=== PATIENT | female | born 1970 | race Caucasian/White ===

== ENCOUNTER 2018-01-16 14:53 | Emergency (ER) | payer OTHER ==
[2018-01-16 15:54] LABS: ABS Basophils 0 10^3/ul (0-0.2); ABS Eosinophils 0.1 10^3/ul (0-0.6); ABS Lymphocytes 2.1 10^3/ul (1.0-4.8); ABS Monocytes 0.4 10^3/ul (0-0.8); ABS Neutrophils 3.9 10^3/ul (1.5-7.7); ABS Nucleated RBC 0 10^3/ul; Hematocrit 40 % (35-47); Hemoglobin 13.9 g/dl (12.0-16.0); Lymphocyte % 32.5 % (25-47); Mean Corpuscular HGB Conc 35 g/dl (31-36); Mean Corpuscular Hemoglobin 31 pg (27-31); Mean Corpuscular Volume 89 fL (80-97); Mean Platelet Volume 7.6 um3 (7.4-10.4); Nucleated Red Blood Cells % 0.1; Platelet Count 305 10^3/ul (150-450); Red Blood Count 4.48 10^6/ul (4.00-5.40); Red Cell Distribution Width 13 % (10.5-15); White Blood Count 6.4 10^3/ul (3.5-10.8)
[2018-01-16] MEDS ORDERED: Labetalol IV* 5 MG/ML 20 ML VIAL IV PUSH ONE (15:56)
[2018-01-16 16:02] LABS: INR 0.91 (0.77-1.02)
[2018-01-16 16:15] LABS: EGFR Non-African American 93.6 (>60)
[2018-01-16 16:33] LABS: Urine Appearance Clear; Urine Blood Negative (Negative); Urine Color Colorless; Urine Ketones Negative (Negative); Urine Protein Negative (Negative); Urine Specific Gravity 1.002 (1.010-1.030); Urine Urobilinogen Negative (Negative)
--- NOTE | 2018-01-16 17:01 | RAD ---
INDICATION: Hypertension. Left occipital headache COMPARISON: None TECHNIQUE: Noncontrast axial source images were acquired from the skull base to the vertex. FINDINGS: Ventricles/sulci: The ventricles and cisterns are normal in size and configuration for age. Brain parenchyma: There is no focal parenchymal finding, evidence of intracranial mass, or intracranial mass effect. Intracranial hemorrhage:None. Extra-axial spaces: There are no abnormal extra axial fluid collections or evidence of extra-axial mass. Calvarium: There is no calvarial fracture or other calvarial abnormality. Scalp: There is no evidence of scalp or extracalvarial soft tissue abnormality. Paranasal sinuses/mastoid: The paranasal sinuses and mastoid air cells are clear. Other: None. IMPRESSION: NEGATIVE NONCONTRAST CT EXAMINATION
--- NOTE | 2018-01-16 17:17 | RAD ---
Indication: Hypertension. Tachycardia. Comparison: February 28, 2013 CT. Technique: Sitting AP chest 1704 hours Report: Clear lungs and pleural spaces. Negative for pneumothorax. The heart, pulmonary vasculature, and mediastinal contours are unremarkable. Unremarkable osseous structures and soft tissue contours. IMPRESSION: #. No evidence for acute intrathoracic disease.
[2018-01-16] MEDS ORDERED: Lisinopril TAB* 10 MG PO ONE (17:37)
--- NOTE | 2018-01-16 18:02 | ED ---
HPI Cardiac - HPI Summary HPI Summary: This is scribe Israel Rayo documenting for attending Tana Xavier MD. A 47 y/o female presents to ED c/o HTN and headache intermittently for the past few days, worse this am . In the ED room, the patient has a pulse of 98 BPM, O2 saturation of 98% and blood pressure of 145/105. The patient was dropping her car off for inspection. According to the patient, when she initially took her blood pressure, it was 150/77 with a pulse of 117 BPM. She stated that she " sort of freaked out, but decided to be calm". She doubled check her blood pressure with a friend's device and it revealed a blood pressure of 149/100 with a pulse of 112 BPM. She then checked several more times from 12:55 to 14: 12. The second time was 144/102 with a pulse of 117 BPM and the third time was 154/108 with a pulse of 116 BPM. She noted that she had some food and a fruit smoothy to try to calm herself. Additionally she noted that she has neck pain for the past couple days as she has pressure in the back of her head and eye socket, especially on the left. She also has been having elevated BP readings for the past 3 days. She was assigned a coffee blender so young because patient has a strong family history of cardiac issues and onset of HTN at a young age. Dr. Benson is her coffee blender. LKMP was January 05 2018. FHx of brain aneurysm (uncle), AR (grandfather), bicuspid aortic value and stents(brother). SHx of no drinking, no smoking. Per pt an ECHO and EKG have been done previously by Dr. Benson. Stress test completed by coffee blender was negative , however, she does have "a murmur and leaky value". Allergic to codeine and its whole family. PMHx of tual ligation. History from Dr. Benson's office: ECHO 11/04/2016. EF 55-60%. Stress ECHO on 11/15/2016 - normal. Normal aortic valve. No significant changes with EKG on 10/14/2016. Consistent with today. I, Dr. Tana Xavier, personally performed the services described in this documentation as scribed in my presence and it is both accurate and complete. - History of Current Complaint Chief Complaint: EDHeadache Stated Complaint: HEADACHE/HIGH BP Time Seen by Provider: 01/16/18 15:28 Hx Obtained From: Patient, Medical Records - from Dr. Benson's office Onset/Duration: Started Days Ago - 3, Still Present Timing: Constant Initial Severity: Moderate Current Severity: Moderate Pain Intensity: 5 - left neck, left post occiput, left orbit Pain Scale Used: 0-10 Numeric Chest Pain Radiates: No Aggravating Factor(s): Nothing Alleviating Factor(s): Nothing Associated Signs and Symptoms: Positive: Negative - Risk Factors Cardiac Risk Factors: Family History AMI/ACS Risk Factors: Family History, Hypertension - Allergy/Home Medications Allergies/Adverse Reactions: Allergies Allergy/AdvReac Type Severity Reaction Status Date / Time codeine Allergy Nausea And Verified 01/16/18 15:40 Vomiting LATEX AdvReac Mild Itching Uncoded 01/16/18 15:40 Home Medications: Home Medications diphenhydrAMINE HCl [Benadryl Allergy 25 MG CAP] 25 mg PO BID PRN 01/16/18 [ History Confirmed 01/16/18] PMH/Surg Hx/FS Hx/Imm Hx Previously Healthy: No Cardiovascular History: Reports: Hx Hypertension - STARTED ON LISINOPRIL 08/31/12 Respiratory History: Denies: Hx Asthma Sensory History: Reports: Hx Contacts or Glasses Denies: Hx Hearing Aid Opthamlomology History: Reports: Hx Contacts or Glasses - Cancer History Hx Chemotherapy: No Hx Radiation Therapy: No - Surgical History Surgery Procedure, Year, and Place: TUBAL,ACL,HAND TENDON REPAIRED Hx Anesthesia Reactions: No - Immunization History Date of Tetanus Vaccine: Up to date Date of Influenza Vaccine: Doesn't get this Infectious Disease History: No Infectious Disease History: Denies: Traveled Outside the [place] in Last 30 Days - Family History Known Family History: Positive: Cardiac Disease, Hypertension, Other - uncle with brain aneurysm in his 40's - Social History Lives: With Family - is a single mother of a 12 yo. The 12yo's father . Pt has a boyfriend Alcohol Use: Weekly Alcohol Amount: 4-5 drinks on weekends Substance Use Type: Reports: None Smoking Status (MU): Never Smoked Tobacco Review of Systems Negative: Fever Positive: Other - POSITIVE: HTN Respiratory: Negative Gastrointestinal: Negative Positive: Other - POSITIVE: Neck pain Skin: Negative Positive: Headache Psychological: Normal All Other Systems Reviewed And Are Negative: Yes Physical Exam - Summary Physical Exam Summary: Appearance: Well-appearing, moderate pain distress, well-nourished, hypertensive , texting in room. Skin:Warm, color reflects adequate perfusion, dry Head:Normal Head/Face inspection, atraumatic Eyes: Conjunctiva clear, PERRL, EOMI, no nystagmus. ENT:Normal inspection Neck:Supple, no nodes, no JVD, neck pain left trapezius on palpation, good chin to chest, no rigidity Respiratory: Lungs clear, normal breath sounds, no respiratory distress Cardio: RRR, No murmur, pulses normal, brisk capillary refill Abdomen: Soft, nontender Bowel sounds: Present Musculoskeletal: Strength Intact/ROM intact, no calf tenderness, no edema. Psychological: Normal Neuro: A&O x3, CN II-XII intact, motor function 5/5, sensation intact, cerebellar normal GCS: 15 Triage Information Reviewed: Yes Vital Signs On Initial Exam: Initial Vitals Temp Pulse Resp BP Pulse Ox 97.5 F 107 16 145/94 98 01/16/18 14:55 01/16/18 14:55 01/16/18 14:55 01/16/18 14:55 01/16/18 14:55 Vital Signs Reviewed: Yes Diagnostics - Vital Signs Vital Signs Temp Pulse Resp BP Pulse Ox 01/16/18 17:01 94 22 136/96 96 01/16/18 17:00 96 22 97 01/16/18 16:40 99 19 115/87 96 01/16/18 16:36 100 21 142/94 97 01/16/18 16:00 17 145/108 01/16/18 15:46 30 142/108 01/16/18 15:30 98 145/105 97 01/16/18 14:55 97.5 F 107 16 145/94 98 - Laboratory Lab Results: Lab Results 01/16/18 01/16/18 01/16/18 Range/Units 15:45 15:45 15:45 WBC 6.4 (3.5-10.8) 10^3/ul RBC 4.48 (4.00-5.40) 10^6/ul Hgb 13.9 (12.0-16.0) g/dl Hct 40 (35-47) % MCV 89 (80-97) fL MCH 31 (27-31) pg MCHC 35 (31-36) g/dl RDW 13 (10.5-15) % Plt Count 305 (150-450) 10^3/ul MPV 7.6 (7.4-10.4) um3 Neut % (Auto) 60.4 (38-83) % Lymph % (Auto) 32.5 (25-47) % [place] % (Auto) 5.8 (0-7) % Eos % (Auto) 1.0 (0-6) % Baso % (Auto) 0.3 (0-2) % Absolute Neuts (auto) 3.9 (1.5-7.7) 10^3/ul Absolute Lymphs (auto) 2.1 (1.0-4.8) 10^3/ul Absolute Monos (auto) 0.4 (0-0.8) 10^3/ul Absolute Eos (auto) 0.1 (0-0.6) 10^3/ul Absolute Basos (auto) 0 (0-0.2) 10^3/ul Absolute Nucleated RBC 0 10^3/ul Nucleated RBC % 0.1 INR (Anticoag Therapy) (0.77-1.02) APTT (26.0-36.3) seconds D-Dimer, Quantitative (Less Than 230) ng/mL Sodium 135 (135-145) mmol/L Potassium 4.2 (3.5-5.0) mmol/L Chloride 102 (101-111) mmol/L Carbon Dioxide 26 (22-32) mmol/L Anion Gap 7 (2-11) mmol/L BUN 13 (6-24) mg/dL Creatinine 0.67 (0.51-0.95) mg/dL Est GFR ( Amer) 113.2 (>60) Est GFR (Non-Af Amer) 93.6 (>60) BUN/Creatinine Ratio 19.4 (8-20) Glucose 128 H (70-100) mg/dL Lactic Acid 1.3 (0.5-2.0) mmol/L Calcium 9.3 (8.6-10.3) mg/dL Total Bilirubin 0.60 (0.2-1.0) mg/dL AST 16 (13-39) U/L ALT 10 (7-52) U/L Alkaline Phosphatase 65 (34-104) U/L Total Creatine Kinase 77 (10-223) U/L CK-MB (CK-2) 1.8 (0.6-6.3) ng/mL Troponin I 0.00 (<0.04) ng/mL B-Natriuretic Peptide ( - 100) pg/mL Total Protein 6.8 (6.4-8.9) g/dL Albumin 4.1 (3.2-5.2) g/dL Globulin 2.7 (2-4) g/dL Albumin/Globulin Ratio 1.5 (1-3) Thyroxine (T4) 6.91 (6.09-12.23) mcg/mL Beta HCG, Quant < 0.60 mIU/mL Urine Color Urine Appearance Urine pH (5-9) Ur Specific [place] (1.010-1.030) Urine Protein (Negative) Urine Ketones (Negative) Urine Blood (Negative) Urine Nitrate (Negative) Urine Bilirubin (Negative) Urine Urobilinogen (Negative) Ur Leukocyte Esterase (Negative) Urine Glucose (Negative) 01/16/18 01/16/18 01/16/18 Range/Units 15:45 15:45 16:26 WBC (3.5-10.8) 10^3/ul RBC (4.00-5.40) 10^6/ul Hgb (12.0-16.0) g/dl Hct (35-47) % MCV (80-97) fL MCH (27-31) pg MCHC (31-36) g/dl RDW (10.5-15) % Plt Count (150-450) 10^3/ul MPV (7.4-10.4) um3 Neut % (Auto) (38-83) % Lymph % (Auto) (25-47) % [place] % (Auto) (0-7) % Eos % (Auto) (0-6) % Baso % (Auto) (0-2) % Absolute Neuts (auto) (1.5-7.7) 10^3/ul Absolute Lymphs (auto) (1.0-4.8) 10^3/ul Absolute Monos (auto) (0-0.8) 10^3/ul Absolute Eos (auto) (0-0.6) 10^3/ul Absolute Basos (auto) (0-0.2) 10^3/ul Absolute Nucleated RBC 10^3/ul Nucleated RBC % INR (Anticoag Therapy) 0.91 (0.77-1.02) APTT 29.2 (26.0-36.3) seconds D-Dimer, Quantitative < 200 (Less Than 230) ng/mL Sodium (135-145) mmol/L Potassium (3.5-5.0) mmol/L Chloride (101-111) mmol/L Carbon Dioxide (22-32) mmol/L Anion Gap (2-11) mmol/L BUN (6-24) mg/dL Creatinine (0.51-0.95) mg/dL Est GFR ( Amer) (>60) Est GFR (Non-Af Amer) (>60) BUN/Creatinine Ratio (8-20) Glucose (70-100) mg/dL Lactic Acid (0.5-2.0) mmol/L Calcium (8.6-10.3) mg/dL Total Bilirubin (0.2-1.0) mg/dL AST (13-39) U/L ALT (7-52) U/L Alkaline Phosphatase (34-104) U/L Total Creatine Kinase (10-223) U/L CK-MB (CK-2) (0.6-6.3) ng/mL Troponin I (<0.04) ng/mL B-Natriuretic Peptide 11 ( - 100) pg/mL Total Protein (6.4-8.9) g/dL Albumin (3.2-5.2) g/dL Globulin (2-4) g/dL Albumin/Globulin Ratio (1-3) Thyroxine (T4) (6.09-12.23) mcg/mL Beta HCG, Quant mIU/mL Urine Color Colorless Urine Appearance Clear Urine pH 6.0 (5-9) Ur Specific [place] 1.002 L (1.010-1.030) Urine Protein Negative (Negative) Urine Ketones Negative (Negative) Urine Blood Negative (Negative) Urine Nitrate Negative (Negative) Urine Bilirubin Negative (Negative) Urine Urobilinogen Negative (Negative) Ur Leukocyte Esterase Negative (Negative) Urine Glucose Negative (Negative) Result Diagrams: 01/16/18 15:45 01/16/18 15:45 Lab Statement: Any lab studies that have been ordered have been reviewed, and results considered in the medical decision making process. - Radiology CXR Radiology Interpretation Completed By: Radiologist - No evidence for acute intrathoracic disease. ED physician reviewed this radiology report. - CT BRAIN CT CT Interpretation Completed By: Radiologist - NEGATIVE NONCONTRAST CT EXAMINATION. ED physician reviewed this radiology report. - EKG 1530 Cardiac Rate: NL - 93 BPM EKG Rhythm: Sinus Rhythm ST Segment: Non-Specific Ectopy: None EKG Interpretation: 1st degree AV block, nl IV CT, nl axis, no acute changes EKG Comparison: No Significant Change - compared with 02/28/2013 Re-Evaluation - Re-Evaluation First Eval Re-Evaluation Time: 17:42 Comment: Patient's blood pressure is 132/91, pulse of 93 BPM. Patient still has left orbital, frontal and occipital headache. Giving 10 mg of Lisinopril, her usual BP medication and acetaminophen. Disposition - Course Course Of Treatment: A 47 y/o female presents to ED c/o HTN and headache, intermittent for the past 3 days, but headache and HTN gradual onset this am, less than 12 hrs. A CXR revealed no evidence for acute intrathoracic disease. A Brain CT revealed negative non-contrast CT examination. An EKG revealed NSR of 93 BPM, 1st degree AV block, nl QTc, nl axis. In the ED course, the patient recieved labetalol 10mg IV with good decrease in BP, then lisinopril 10mg po ( her usual BP medication) and acetaminophen which decreased her headache and neck pain. Pt was concerned about possible brain aneurysm because her uncle of this in his 40's and pt also has significant cardiac hx in her brother and father. Patient care was discussed with Dr. Mckoy whether or not to do CTA, lumbar puncture, and he advised that CT done within 12 hrs of onset of GILLIS and HTN is 99% specific for no subarachnoid bleed. Pt also did not have sudden onset, thunderclap headache, and while pt has headache and neck pain while in the ED she has a normal neurologic exam, and can text and carry on conversation with her boyfriend, and neck pain and headache were improved with acetaminophen. Patient will be discharged with a diagnosis of cephalgia and hypertensive urgency. Patient is to follow up with PCP, Dr. Raymond within 2 days. - Differential Dx - Cardiopulmonary Differential Diagnoses - Cardiopulmonary: CAD, Cardiomyopathy, CHF, Myocardial Infarction, Other - CVA, subarachnoid bleed. - Diagnoses Provider Diagnoses: Hypertensive urgency, Cephalgia, First degree AV block - Physician Notifications Discussed Care Of Patient With: Negrita Ean Time Discussed With Above Provider: 17:55 Instructed by Provider To: Other - Discussed whether or not to do CTA. Discharge - Sign-Out/Discharge Documenting (check all that apply): Patient Departure - DISCHARGE - Discharge Plan Condition: Stable Disposition: HOME Patient Education Materials: Hypertensive Crisis (ED) Referrals: Mandi BARRAZA,Pj Mir [Primary Care Provider] - 2 Days Spike Benson MD [Medical Doctor] - 2 Days Additional Instructions: We have given you a copy of all of the studies that were done on your today. You did not have hypertensive crisis, but your blood pressure was very elevated. (145/108) You were given labetalol 10mg IV once which decreased your BP to 136/96, Pulse to 91. You were then given your usual lisinopril 10mg orally and your blood pressure continued to stay at 136/96 range. If your blood pressure is greater than 140/ 100 tonight when you are going to bed you may repeat a one time dose of lisinopril 10mg orally (for a maximum dose of 20mg orally today). You were given acetaminophen 650mg orally at 6:15pm for a headache. You may take acetaminophen 650mg orally every 4 hrs for headache or pain, up to 4 grams total in 24 hrs. We have advised that you avoid ibuprofen at this time when you have had the headache and hypertension, with concern for a bleeding aneurysm in the brain because ibuprofen interferes with platelet function and can make you more likely to bleed. We discussed with the neurologist about your headache and HTN, and with the onset of your headache less than 12 hrs, and a negative CT we have 99% assurance that it is not a bleed in your brain, and that advice together with my clinical judgment and assessment of your pain and your exam, I do not think that you have a subarachnoid bleed, or bleeding aneurysm in your brain to account for your headache. If the headache worsens, you should seek medical care immediately. Have definite follow up with your primary care provider, and with Dr. Benson in the next few days. They may want to start another medication for hypertension. Return to the ER if any new or worsening symptoms. - Billing Disposition and Condition Condition: STABLE Disposition: Home
[2018-01-16] MEDS ORDERED: Acetaminophen TAB* 325 MG PO ONE (18:07)
[2018-01-16 19:34] VITALS: BP 130/94
== END 2018-01-16 19:36 | disposition home or self-care (01) ==
LOC: ED 14:53
DX: I10 Essential (primary) hypertension (principal); R51 Headache; I44.0 Atrioventricular block, first degree; Z79.899 Other long term (current) drug therapy; Z82.49 Family history of ischemic heart disease and other diseases of the circulatory system; Z88.5 Allergy status to narcotic agent
CPT/HCPCS: 36415; 70450; 71045; 80053; 81003; 82550; 82553; 83605; 83880; 84436; 84484; 84702; 85025; 85379; 85610; 85730; 93005; 96374; 99284; A9270-GY